=== PATIENT | female | born 1965 | race American Indian/Alaskan Native ===

== ENCOUNTER 2018-06-01 07:13 | Day surgery (SDC) | payer OTHER ==
[~2018-06-01 07:13] MED LIST: Lactated Ringers 1,000 ML IV SCH
--- NOTE | 2018-06-01 08:08 | PCM.PREANE ---
Preanesthetic Assessment - Procedure Proposed Procedure: EGD and colonoscopy - Anesthesia/Transfusion/Family Hx Anesthesia History: Prior Anesthesia Without Reaction Family History of Anesthesia Reaction: No Transfusion History: No Prior Transfusion(s) - Review of Systems General: No Symptoms Pulmonary: No Symptoms, Other (former smoker) Cardiovascular: No Symptoms Gastrointestinal: Abdominal Pain, Diarrhea, Other (GERD, obese) Neurological: Other (former ETOH abuse) Other: Reports: None - Physical Assessment O2 Sat by Pulse Oximetry: 96 Respiratory Rate: 16 Vital Signs: Last Vital Signs Temp 97.0 F 06/01/18 07:30 Pulse 80 06/01/18 07:30 Resp 16 06/01/18 07:30 BP 142/87 H 06/01/18 07:30 Pulse Ox 96 06/01/18 07:30 Height: 5 ft 6 in Weight: 106.594 kg ASA Class: 2 Mental Status: Alert & Oriented x3 Airway Class: Mallampati = 3 Dentition: Reports: Broken Tooth/Teeth Thyro-Mental Finger Breadths: 2 Mouth Opening Finger Breadths: 3 ROM/Head Extension: Full Lungs: Clear to Auscultation Cardiovascular: Regular Rate - Lab Values: Laboratory Last Values Urine HCG, Qual NEGATIVE (NEGATIVE) 06/01/18 07:25 - Allergies Allergies/Adverse Reactions: Allergies Allergy/AdvReac Type Severity Reaction Status Date / Time acetaminophen [From Percocet] Allergy Hives Verified 05/29/18 09:40 morphine Allergy Hypotension Verified 05/29/18 09:40 oxycodone [From Percocet] Allergy Hives Verified 05/29/18 09:40 sulfamethoxazole Allergy Hives Verified 05/29/18 09:40 [From Bactrim] trimethoprim [From Bactrim] Allergy Hives Verified 05/29/18 09:40 - Blood Blood Available: No Product(s) Available: None - Anesthesia Plan Pre-Op Medication Ordered: None - Acknowledgements Anesthesia Type Planned: MAC Pt an Appropriate Candidate for the Planned Anesthesia: Yes Alternatives and Risks of Anesthesia Discussed w Pt/Guardian: Yes Pt/Guardian Understands and Agrees with Anesthesia Plan: Yes PreAnesthesia Questionnaire Cardiovascular History: Reports: Hypertension Gastrointestinal History: Reports: GERD, Irritable Bowel Syndrome Other Gastrointestinal History: states hx of GERD and IBS- not recently Genitourinary History: Reports: None HIM ASSISTANT History: Reports: Endocrine/Metabolic History: Reports: Obesity/BMI 30+ - Past Surgical History GI Surgical History: Reports: None Female Surgical History: Reports: Section - SUBSTANCE USE Smoking Status *Q: Never Smoker Recreational Drug Use History: No - HOME MEDS Home Medications: Home Meds hydroCHLOROthiazide [Hydrochlorothiazide] 12.5 mg PO QAM 05/29/18 [History] - CURRENT (IN HOUSE) MEDS Current Meds: Current Medications Lactated Ringer's (Ringers, Lactated) 1,000 mls @ 125 mls/hr IV ASD[facility]ED [facility] Last Admin: 06/01/18 07:35 Dose: 125 mls/hr
[2018-06-01] MEDS ORDERED: fentaNYL 100 MCG/2 ML SDV ONE (08:13)
[2018-06-01] MEDS ORDERED: Propofol 200 MG/20 ML SDV ONE (08:13)
[2018-06-01] MEDS ORDERED: Midazolam 1 MG/ML 2 ML SDV ONE (08:13)
[2018-06-01] MEDS ORDERED: Glycopyrrolate 0.2 MG/ML SDV ONE (09:41)
--- NOTE | 2018-06-01 10:05 | PCM.OPNOTE ---
- General Post-Op/Procedure Note Date of Surgery/Procedure: 06/01/18 Operative Procedure(s): egd w bx. colonoscopy Findings: see dict [id number] Pre Op Diagnosis: scrn colonoscopy and gerd Post-Op Diagnosis: Same Anesthesia Technique: Moderate Sedation Primary Surgeon: Bobo Denny Pathology: egd bx Complications: None Condition: Good
--- NOTE | 2018-06-01 10:18 | PCM48HPAN ---
Post Anesthesia Note - EVALUATION WITHIN 48HRS OF ANESTHETIC Vital Signs in Normal Range: Yes Patient Participated in Evaluation: Yes Respiratory Function Stable: Yes Airway Patent: Yes Cardiovascular Function Stable: Yes Hydration Status Stable: Yes Pain Control Satisfactory: Yes Nausea and Vomiting Control Satisfactory: Yes Mental Status Recovered: Yes Resp Rate: 12 - COMMENTS/OBSERVATIONS Free Text/Narrative:: no anesthesia problems
--- NOTE | 2018-06-01 14:32 | PCM.POSTAN ---
POST ANESTHESIA ASSESSMENT - MENTAL STATUS Mental Status: Oriented - VITAL SIGNS Pulse Rate: 68 SaO2: 99 Resp Rate: 12 Blood Pressure: 122/82 Temperature: 36.4 C - RESPIRATORY Respiratory Status: Respiratory Rate WNL, Airway Patent, O2 Saturation Stable - CARDIOVASCULAR CV Status: Pulse Rate WNL, Blood Pressure Stable - GASTROINTESTINAL GI Status: No Symptoms - PAIN Pain Score: 2 (Received Dilaudid 0.5mg x 4) Free Text/Narrative:: Doing well. Alert. Some itching from narcotics. - POST OP HYDRATION Hydration Status: Adequate & Stable (Doing well. Adequate for transfer)
--- NOTE | 2018-06-01 14:50 | OR ---
SURGEON: Bobo Denny MD DATE OF PROCEDURE: 06/01/2018 PREOPERATIVE DIAGNOSES: 1. Screening colonoscopy. 2. Gastroesophageal reflux disease. POSTOPERATIVE DIAGNOSES: 1. Screening colonoscopy. 2. Gastroesophageal reflux disease. PROCEDURES PERFORMED: Esophagogastroduodenoscopy with biopsy, and colonoscopy. PROCEDURE IN DETAIL: EGD: The patient was taken to the endoscopy room, and with the MASTER GLAZIER, Diprivan was administered. A well-lubricated EGD scope was gently inserted through the oropharynx, down the esophagus, passing through the gastroesophageal junction, into the stomach. The mucosa was examined upon the passage. Any etiology will be noted. Once in the stomach, we continued to advance to the distal antrum, passed through the pylorus into the second portion of the duodenum. Again, the mucosa was examined for any abnormality and etiology. The scope was then retrieved back to the stomach and then retroflexed to look at the fundus of the stomach. If a biopsy was indicated, we will biopsy the antrum, body, and gastroesophageal junction. The air will be sucked out while the scope is retrieved to reduce the patient's discomfort. The patient tolerated the procedure well. There were no intraoperative complications. Dr. Denny was present through the whole procedure. Prior to surgery, a time-out had been called, the patient identified, procedure identified and antibiotic administered. Colonoscopy procedure: The patient was taken to the endoscopy room. A time out was called, patient identified, and procedure identified. Diprivan was then administrated. Patient went from awake to sleep, hearing doctor talking or door closing is normal. Perineum inspection and digital examination were then performed. A well- lubricated colonoscope was gently inserted through the rectum, advanced past the rectosigmoid junction, the descending colon, splenic flexure, transverse colon, hepatic flexure, ascending colon, arrived to the cecum. Cecum was identified as dictated in the finding. Then the scope was carefully withdrawn while attention was paid to the mucosal surface for any abnormality. Air will be sucked out during the scope withdrawal. At the rectum, retroflexed to examine any rectal diseases, fistula or hemorrhoids. Patient tolerated procedure well. There were no intraoperative complications, and Dr. Denny was present throughout the whole procedure. FINDINGS: EGD findin. The patient is easily sedated with MASTER GLAZIER and Diprivan. The patient is soundly snoring. 2. The patient's oropharynx and proximal esophagus are free of disease. No stricture or inflammation, and distal esophagus at 36 cm with salmon- colored change, and also with early formation of Schatzki ring, and stomach rugae is normal in appearance. There is no ulcer, blood, food, or bile observed. Antrum is normal in appearance, and duodenum was grossly normal. Duodenum polyp is a little bit inflamed, and scope retrieved back to the stomach. Retroflexed look at the fundus of stomach, there is no hiatal hernia. Biopsy done at antrum, body, GE junction at 40 and sucked out the gas while scope pulling out. Colonoscopy findin. The patient is easily sedated with MASTER GLAZIER and Diprivan. The patient is soundly snoring. 2. Bowel prep is average. No semi-formed stool. 3. Colon is rather straight forward. Cecum indicated by ileocecal fold, one- to-one indentation, light emittance, and appendiceal orifice. Mucosa examined upon scope pulling out. The patient has mild diverticulosis on the left colon and extended all the way, passed through splenic flexure into the transverse colon. No signs or symptoms of diverticulitis, and no polyp, mass, growth, inflammation, stricture, ulceration, AV malformation, bleeding, ulceration, none of those. The patient has mild internal hemorrhoids and mild external hemorrhoids. The patient would benefit from repeat colonoscopy in 10 years from today or if clinically indicated otherwise. GILBERT / SURENDRA /[id number]
== END 2018-06-01 10:40 | disposition home or self-care (01) ==
LOC: MW.SDS 07:13
PROVIDERS: ATTEND Surgery
DX: K21.9 Gastro-esophageal reflux disease without esophagitis (principal); B96.81 Helicobacter pylori [H. pylori] as the cause of diseases classified elsewhere; K20.9 Esophagitis, unspecified; Z12.11 Encounter for screening for malignant neoplasm of colon; K57.30 Diverticulosis of large intestine without perforation or abscess without bleeding; K64.8 Other hemorrhoids; K64.4 Residual hemorrhoidal skin tags; I10 Essential (primary) hypertension; E66.9 Obesity, unspecified; Z68.37 Body mass index [BMI] 37.0-37.9, adult; Z87.891 Personal history of nicotine dependence; Z79.899 Other long term (current) drug therapy; Z88.5 Allergy status to narcotic agent; Z88.1 Allergy status to other antibiotic agents
CPT/HCPCS: 43239; 45378; 81025; J2001; J2250; J2704; J3010; J3490; J7120; 88305; 88312